=== PATIENT | male | born 1985 | race Caucasian/White ===

== ENCOUNTER 2017-10-02 15:48 | Emergency (ER) | payer MEDICAID, OTHER ==
[~2017-10-02] VITALS: Ht 160 cm; Wt 97.5 kg
[2017-10-02 15:56] VITALS: BP 142/87
[2017-10-02] MEDS ORDERED: KETOROLAC TROMETH 60MG/2ML VIAL IM ONE (17:15)
== END 2017-10-02 18:54 | disposition home or self-care (01) ==
LOC: ER 15:48
DX: M25.561 Pain in right knee (principal)
CPT/HCPCS: 73560; 96372; 99284; J1885